=== PATIENT | male | born 1980 | race Caucasian/White ===

== ENCOUNTER 2021-06-14 12:43 | Emergency (ER) | payer OTHER ==
[2021-06-14 13:29] VITALS: BP 120/79; PULSE 94; RESP 20; TEMP 97.8
[2021-06-14] MEDS ORDERED: DIPH,PERTUS(ACELL)TETVAC-LF 0.5 ML VIAL IM ONE (14:30)
[2021-06-14] MEDS ORDERED: LIDOCAINE 1%-EPI 1:100,000 20 ML VIAL SQ STA (14:30)
--- NOTE | 2021-06-14 14:35 | ED ---
Wound/Laceration HPI - General Chief Complaint: Wound/Laceration Stated Complaint: lac on head Time Seen by Provider: 06/14/21 14:23 Source: patient Mode of arrival: ambulatory Limitations: no limitations - History of Present Illness Initial Comments: This is a well-appearing 41-year-old white male, alert and oriented 4, presents to the emergency room after sustaining a laceration to the top of his scalp about 3 hours prior to arrival. 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 He sustained a laceration to his parietal scalp and an abrasion to his left shoulder. He states he went to [facility] and they put iodine on it and told to come to the emergency room. He denies any loss of consciousness, headaches or blurred vision. He is not sure of his tetanus shot is up-to-date. Denies any other medical history. -: hour(s) (3) Location: scalp Place: home Patient Tetanus UTD: No Context: accidental Associated Symptoms: none Treatments Prior to Arrival: other ([facility], iodine) - Related Data Allergies Allergy/AdvReac Type Severity Reaction Status Date / Time No Known Allergies Allergy Verified 06/14/21 13:29 Review of Systems ROS Statement: Those systems with pertinent positive or pertinent negative responses have been documented in the HPI. ROS Other: All systems not noted in ROS Statement are negative. Past Medical History Past Medical History: No Reported History History of Any Multi-Drug Resistant Organisms: None Reported Past Surgical History: No Surgical Hx Reported Past Psychological History: No Psychological Hx Reported Smoking Status: Never smoker Past Alcohol Use History: None Reported Past Drug Use History: None Reported General Exam Limitations: no limitations General appearance: alert, in no apparent distress Head exam: Present: normocephalic, other (5 cm laceration parietal) Eye exam: Present: normal appearance, PERRL, EOMI. Absent: scleral icterus, conjunctival injection, periorbital swelling ENT exam: Present: normal exam, normal oropharynx, mucous membranes moist Neck exam: Present: normal inspection, full ROM. Absent: tenderness, meningismus, lymphadenopathy, thyromegaly Respiratory exam: Present: normal lung sounds bilaterally. Absent: respiratory distress, wheezes, rales, rhonchi, stridor Cardiovascular Exam: Present: regular rate, normal rhythm, normal heart sounds. Absent: systolic murmur, diastolic murmur, rubs, gallop, clicks GI/Abdominal exam: Present: soft, normal bowel sounds. Absent: distended, tenderness, guarding, rebound, rigid Extremities exam: Present: normal inspection, full ROM, normal capillary refill. Absent: tenderness, pedal edema, joint swelling, calf tenderness Back exam: Present: normal inspection, full ROM. Absent: tenderness, CVA tenderness (R), CVA tenderness (L) Neurological exam: Present: alert, oriented X3, CN II-XII intact, normal gait Psychiatric exam: Present: normal affect, normal mood Skin exam: Present: warm, dry, normal color, abrasion (Left shoulder), other (5 cm laceration to parietal scalp). Absent: rash Course Vital Signs 06/14/21 13:27 Temperature 97.8 F Pulse Rate 94 Respiratory 20 Rate Blood Pressure 120/79 O2 Sat by Pulse 98 Oximetry Procedures - Laceration Laceration #1 Consent Obtained: verbal consent Indication: laceration Site: scalp Description: linear Depth: simple, single layer Anesthetic Used: lidocaine 1%, with epi Anesthesia Technique: local infiltration Pre-repair: irrigated extensively Type of Sutures: other ([place]) Number of Sutures: 4 Patient Tolerated Procedure: well Medical Decision Making - Medical Decision Making This is a well-appearing patient sustained a laceration to his parietal scalp. He denies any loss of consciousness, headaches or blurred vision. He has no focal neurological deficits, ambulates with a steady gait. [place] CT head was negative. It was irrigated with 100 mL normal saline and closed with 4 jordan. Instructed to return to the emergency room in 7 days for follow-up with his primary care doctor for staple removal. Case discussed with Dr. Bob Disposition Clinical Impression: Laceration Disposition: HOME SELF-CARE Condition: Good Instructions (If sedation given, give patient instructions): Staple Care (ED) Additional Instructions: [place] to be removed in 7 days, you can follow-up with her primary care doctor or return to the emergency room. Return if any worsening symptoms including signs of infection, redness, drainage or fevers. Is patient prescribed a controlled substance at d/c from ED?: No Referrals: None,Stated [Primary Care Provider] - 1-2 days Time of Disposition: 15:06
== END 2021-06-14 15:14 | disposition home or self-care (01) ==
LOC: EC 12:43
DX: S01.01XA Laceration without foreign body of scalp, initial encounter (principal); Z23 Encounter for immunization; W20.8XXA Other cause of strike by thrown, projected or falling object, initial encounter; Y92.009 Unspecified place in unspecified non-institutional (private) residence as the place of occurrence of the external cause
CPT/HCPCS: 12001; 90471; 90715; 99282